=== PATIENT | male | born 1970 | race Caucasian/White ===

== ENCOUNTER 2022-07-28 07:12 | Day surgery (SDC) | payer BC ==
--- NOTE | 2022-07-25 14:42 | RAD REPORT ---
EXAM DESCRIPTION: RAD - Chest Pa And Lat (2 Views) - 07/25/2022 2:35 pm CLINICAL HISTORY: Pre op pending hernia surgery COMPARISON: No comparisons FINDINGS: Lines: None. Lungs: No evidence of edema or pneumonia. Pleural: No significant pleural effusions or pneumothorax. Cardiac: The heart size is within normal limits. Mediastinum: Within normal limits. Bones: No acute fractures. Other: None IMPRESSION: No acute cardiopulmonary disease.
[2022-07-25 15:05] LABS: Absolute Lymphocytes (CBC) 1.6 K/uL (0.7-4.9); Hematocrit 46.3 % (39.6-49.0); Lymphocytes % 17.1 % (15.3-44.8); MCV 88.8 fL (80-100); MPV 7.2 fL (7.6-11.3); RBC Red Blood Cell Count 5.22 M/uL (4.33-5.43)
[2022-07-25 15:21] LABS: Potassium 3.5 mmol/L (3.5-5.1)
[2022-07-28] MEDS ORDERED: Ringers Lactate 1,000 ML IV ONE (07:16)
[2022-07-28] MEDS ORDERED: CEFAZOLIN SODIUM 1 GM/VIAL ONE (07:16)
[2022-07-28] MEDS ORDERED: BUPIVACAINE 0.5% PF 10 ML VIAL ONE (08:04)
[2022-07-28] MEDS ORDERED: propofoL 200 MG/20 ML VIAL IV ONE (08:19)
[2022-07-28] MEDS ORDERED: FENTANYL CITR 100 MCG/2 ML ONE (08:20)
[2022-07-28] MEDS ORDERED: MIDAZOLAM HCL 2 MG/2 ML INJ ONE (08:20)
[2022-07-28] MEDS ORDERED: LIDOCAINE 2% MPF 5 ML VIAL ONE (08:22)
[2022-07-28] MEDS ORDERED: ROCURONIUM 50 MG/5 ML VIAL IV ONE (08:22)
[2022-07-28] MEDS ORDERED: ONDANSETRON 4 MG/2 ML VIAL ONE (08:22)
[2022-07-28] MEDS ORDERED: NEOSTIGMINE 1 MG/ML -5 ML ONE (08:23)
[2022-07-28] MEDS ORDERED: GLYCOPYRROLATE 0.2 MG/ML SYR ONE (08:23)
[2022-07-28] MEDS ORDERED: EPHEDRINE SULF 50 MG/ML VIAL ONE (09:21)
[2022-07-28] MEDS ORDERED: KETOROLAC 30 MG/ML INJ ONE (09:32)
[2022-07-28] MEDS ORDERED: Mastisol Adhesive Liq ONE (09:34)
[2022-07-28] MEDS ORDERED: HYDROCODONE/APAP 7.5/325 MG TAB PO PRN (09:49)
--- NOTE | 2022-07-28 09:57 | P.OP ---
Date of Service: 07/28/22 Preop diagnosis: Umbilical hernia Postop diagnosis: Same Procedure performed: Laparoscopic assisted repair of umbilical hernia Surgeon: Konstantin Urias MD Head Rigger: None Estimated blood loss: Minimal Specimen: Hernia sac Findings: As above Anesthesia: General Complications: None Drains: None Fluids and blood products: Nonapplicable Disposition: Recovery room Operative note: Patient brought to the OR and placed in the supine position. General anesthesia begun. Patient prepped and draped in the usual sterile fashion. Marcaine 0.5% infiltrated locally. 15 blade used to make a 1 cm left upper quadrant incision. Subcutaneous tissue divided and bleeding controlled cautery. Fascia identified and divided. #1 Vicryl stay suture placed. Peritoneal cavity entered with sharp and blunt dissection. 12 mm trocar placed into the peritoneal cavity under direct vision. Pneumoperitoneum established. 5 mm trocar placed in the left lower quadrant under direct vision. Laparoscopy revealed a umbilical hernia located on the inferior aspect of the umbilicus, approximately 2.5 cm in diameter. No incarceration seen. Marcaine 0.5% for drainage in the infraumbilical region. 3 cm transverse incision made. Hernia sac identified and excised down to the fascia. Good fascial edges obtained. #1 PDS [id number] suture x2 used to close the defect. Pneumoperitoneum reestablished. A small round Bard mesh with the balloon system placed into the peritoneal cavity. Mesh deployed in the standard fashion, with complete coverage of the hernia defect. Sorbi-tack used to secure the mesh to the peritoneal surface. The balloon system removed with all pieces intact. No evidence of bleeding or injury noted. All trochars removed under direct vision. Stay sutures tied to each other to reapproximate the fascial defect. Subcutaneous was irrigated. Bleeding controlled cautery. 3-0 chromic used to approximate subcutaneous tissue in close skin. Sterile dressing applied. Patient awakened and taken to recovery room in good general condition. CC: Dr. Lopez's office
[2022-07-28] MEDS: HYDROMORPHONE HCL 1 MG/ML INJ ONE ×4 (09:59→10:20)
[2022-07-28 10:35] VITALS: TEMP 97.6
[2022-07-28 12:43] VITALS: BP 108/92; O2SAT 96
--- NOTE | 2022-07-28 15:36 | EKG ---
Test Date: 2022-07-25 Test Time: 14:14:09 Treatment Coordinator: RADHA MEASUREMENT RESULTS: Intervals: Rate: 62 AR: 158 QRSD: 96 QT: 402 QTc: 408 [place]: P: 52 AR: 158 QRS: 40 T: 48 INTERPRETIVE STATEMENTS: Normal sinus rhythm Normal ECG No previous ECG available for comparison Electronically Signed On 07-28-22 15:31:51 TAXATION INSPECTOR by Gonzalez Milner
== END 2022-07-28 11:25 | disposition home or self-care (01) ==
LOC: OR 07:12
PROVIDERS: ATTEND Surgery
PROC: 0WUF4JZ Supplement Abdominal Wall with Synthetic Substitute, Percutaneous Endoscopic Approach (ICD-10-PCS; principal; 2022-07-28 08:30)
DX: K42.9 Umbilical hernia without obstruction or gangrene (principal)
CPT/HCPCS: 93005; 85025; 80048; 36415; 88302; 71046; 49652; J2704; J2001; J2250; J3010; J1170 ×2; J2710; J7120; J2405; J0690; C1781